=== PATIENT | female | born 1965 | race Caucasian/White ===

== ENCOUNTER → 2019-05-21 | Outpatient (CLI) | payer OTHER | LOC: M.RAD 09:53 | DX: Z12.31 Encounter for screening mammogram for malignant neoplasm of breast (principal) ==

== ENCOUNTER → 2019-11-10 | Outpatient (CLI) | payer OTHER | LOC: M.RAD 10:53 | DX: M25.561 Pain in right knee (principal) ==

== ENCOUNTER → 2019-11-14 | Outpatient (CLI) | payer OTHER | LOC: M.MRI 16:12 | DX: S83.281A Other tear of lateral meniscus, current injury, right knee, initial encounter (principal); X58.XXXA Exposure to other specified factors, initial encounter; Y93.89 Activity, other specified; Y92.89 Other specified places as the place of occurrence of the external cause; Y99.8 Other external cause status ==

== ENCOUNTER → 2019-12-11 | Day surgery (SDC) | payer OTHER ==
[~2019-12-11] MED LIST: EFFEXOR XR75 MG PO; IBUPROFEN 800800 M1 PO; PERCOCET 5-3251 EACH PO; WELLBUTRIN XL150 MG PO; XARELTO1 EACH PO
--- NOTE | 2019-12-22 10:03 | OP ---
[address] [address] OPERATIVE REPORT Name: STEPHANIE LINDSAY Room: [facility]#: [id number] Admission: 12/11/19 Attend Phys: Ashkan Avery II Discharge: Date of : 69 Report #: [id number] THIS REPORT FOR: //name// cc: Bianka Deng RN, Janene RN FNP ~ THIS REPORT FOR: //name// CC: Bianka Avery DATE OF SERVICE: 12/11/2019 PREOPERATIVE DIAGNOSIS: Right knee anterior cruciate ligament tear. POSTOPERATIVE DIAGNOSES: 1. Right knee anterior cruciate ligament tear. 2. Medial meniscus tear. 3. Grade 3 chondromalacia, lateral femoral condyle. 4. Grade 3 chondromalacia, medial femoral condyle. PROCEDURE PERFORMED: 1. Right knee arthroscopic surgery with ACL reconstruction with allograft. 2. Abrasion chondroplasty of lateral femoral condyle down to bleeding bone. 3. Partial medial meniscectomy. 4. Abrasion chondroplasty of medial femoral condyle down to bleeding bone. SURGEON: Ashkan Avery II, DO. [employer] SAL[employer] MANAGER: DEBI Plasencia. ANESTHESIA: Per operative record. ESTIMATED BLOOD LOSS: Minimal. ANTIBIOTICS: Per operative record. DRAINS: None. COMPLICATIONS: None. CONDITION OF THE PATIENT: Stable to recovery room. DESCRIPTION OF PROCEDURE: The patient was taken to the operative suite and placed supine on the operating table, given appropriate anesthesia. The patient's affected lower extremity was sterilely prepped and draped in a well-padded knee arthroscopic morgan. Surgery began by [address] [address] OPERATIVE REPORT Name: STEPHANIE LINDSAY Room: [facility].#: [id number] Admission: 12/11/19 Attend Phys: Ashkan Avery II Discharge: Date of : 69 Report #: [id number] portal incisions. The arthroscope was advanced in the joint. There was shown to be grade 3 chondromalacia to the lateral femoral condyle. Utilizing a shaver, an abrasion chondroplasty was performed down to bleeding bone and then smoothed using Coblation wand in appropriate fashion. The medial meniscus was shown to have a tear along its medial margin to the posterior horn. This was debrided utilizing using baskets and shaver to resect the torn flap of tissue from within the joint and then smoothed using Coblation wand. The PCL was intact. The ACL did have a tear from its femoral attachment. Allograft was thawed and prepared in appropriate fashion. The tibial tunnel was then sized, prepared with the guide pin and retro-reamer to achieve the tibial tunnel for appropriate alignment. The over the top guide was then placed over the femur and femoral tunnel was reamed. Excess bone and cartilage debris was then removed. After the graft was appropriately placed over the Endobutton, it was then transferred up into the knee and secured proximally and then tensioned in situ with flexion and extension of the knee, secured distally with a tibial screw. This was probed and shown to be intact. A medial femoral condyle also had grade 3 chondromalacia and this was smoothed using Coblation wand down to bleeding bone with the shaver and smoothed with Coblation wand. ACL was probed and shown to be intact. Final images were obtained. Final irrigation was then performed. The knee was then drained of arthroscopic fluid, closed with 4-0 nylon in simple interrupted fashion. Dermabond and sterile dressing applied. The patient transported to recovery room in stable condition. Counts were correct throughout the procedure. <ELECTRONICALLY SIGNED> By: Ashkan Avery II, 12/22/19 1003 [id number] [id number] Avery II DO /nt
== END | disposition home or self-care (01) ==
LOC: M.SUR 07:15
DX: S83.511A Sprain of anterior cruciate ligament of right knee, initial encounter (principal); S83.241A Other tear of medial meniscus, current injury, right knee, initial encounter; M94.261 Chondromalacia, right knee; Z98.890 Other specified postprocedural states; Z79.899 Other long term (current) drug therapy; X58.XXXA Exposure to other specified factors, initial encounter; Y93.89 Activity, other specified; Y92.89 Other specified places as the place of occurrence of the external cause; Y99.8 Other external cause status

== ENCOUNTER → 2019-12-24 | Outpatient (CLI) | payer OTHER | LOC: M.RAD 12:53 | DX: M48.02 Spinal stenosis, cervical region (principal); M25.78 Osteophyte, vertebrae; M40.50 Lordosis, unspecified, site unspecified; M19.012 Primary osteoarthritis, left shoulder; M19.041 Primary osteoarthritis, right hand; M25.849 Other specified joint disorders, unspecified hand ==

== ENCOUNTER → 2020-11-08 | Outpatient (CLI) | payer OTHER | LOC: M.RAD 09:55 | PROVIDERS: ATTEND Orthopaedic Surgery | DX: M17.11 Unilateral primary osteoarthritis, right knee (principal); M25.761 Osteophyte, right knee ==

== ENCOUNTER → 2020-11-19 | Outpatient (CLI) | payer OTHER | LOC: M.MRI 10:17 | PROVIDERS: ATTEND Orthopaedic Surgery | DX: S63.681A Other sprain of right thumb, initial encounter (principal); M18.11 Unilateral primary osteoarthritis of first carpometacarpal joint, right hand; M19.041 Primary osteoarthritis, right hand; X58.XXXA Exposure to other specified factors, initial encounter; Y93.89 Activity, other specified; Y92.89 Other specified places as the place of occurrence of the external cause; Y99.8 Other external cause status ==

== ENCOUNTER → 2021-10-14 | Outpatient (CLI) | payer OTHER ==
[2021-10-14 08:55] LABS: HEMATOCRIT 43.5 % (37.0-47.0); HEMOGLOBIN 14.6 gm/dL (12.0-15.0); MCH 30.2 pg (26.0-34.0); MCHC 33.7 g/dL (28.0-37.0); MCV 89.6 fL (80.0-100.0); MPV 8.9 fl. (7.2-11.1); RBC 4.85 mil/uL (4.20-5.00); RDW-CV 13.1 % (10.5-14.5); WBC 5.6 thou/uL (4.0-11.0)
[2021-10-14 09:08] LABS: ALBUMIN 4.2 g/dL (3.4-5.0); ALKALINE PHOSPHATASE 98 U/L (46-116); ANION GAP 2 mmol/L (7-16); BUN 12 mg/dL (7-18); CHLORIDE 104 mmol/L (98-107); CHOLESTEROL 224 mg/dL (<200); CO2 33 mmol/L (21-32); CREATININE 0.8 mg/dL (0.6-1.3); GLUCOSE 101 mg/dL (70-99); HDL CHOLESTEROL 77 mg/dL (>40); LDL CHOLESTEROL 140 mg/dL (<100); POTASSIUM 4.6 mmol/L (3.5-5.1); SGOT 20 U/L (15-37); SGPT 34 U/L (30-65); SODIUM 139 mmol/L (136-145); TC:HDL 2.9 Ratio (Not establshd); TOTAL BILIRUBIN 0.3 mg/dL (<0.1-1.0); TOTAL PROTEIN 7.2 g/dL (6.4-8.2); TRIGLYCERIDE 37 mg/dL (<150); VLDL 7 mg/dL (<40)
[2021-10-14 09:09] LABS: SERUM ASSESSMENT CLEAR
== END ==
LOC: M.LAB 08:22
PROVIDERS: ATTEND Nurse Practitioner Family
DX: Z00.01 Encounter for general adult medical examination with abnormal findings (principal); R53.83 Other fatigue; R73.09 Other abnormal glucose